=== PATIENT | male | born 1990 | race African-American/Black ===

== ENCOUNTER 2018-11-06 23:46 | Emergency (ER) | payer OTHER ==
[~2018-11-06] VITALS: Ht 182.9 cm; Wt 81.7 kg
[2018-11-07] MEDS ORDERED: XANAX1 MG PO ×2 (00:02→01:15)
[2018-11-07] MEDS ORDERED: [UNRECOGNIZED DRUG - REMARK] (00:03)
[2018-11-07 00:36] LABS: ABSOLUTE NEUTROPHILS 5.3 thou/uL (1.4-8.2); BASOPHILS 0.4 % (0.0-2.0); EOSINOPHILS 1.3 % (0.0-3.0); HEMATOCRIT 41.6 % (42.0-52.0); HEMOGLOBIN 14.1 gm/dL (14.0-18.0); LYMPHOCYTES 18.2 % (24.0-44.0); MCH 27.5 pg (26.0-34.0); MCHC 33.8 g/dL (28.0-37.0); MCV 81.5 fL (80.0-100.0); PLATELET COUNT 225 thou/uL (150-400); POLYS 75.1 % (36.0-66.0); RDW 12.5 % (10.5-14.5)
[2018-11-07 00:55] LABS: ANION GAP 12 mmol/L (7-16); BUN 10 mg/dL (7-18); CHLORIDE 93 mmol/L (98-107); CO2 26 mmol/L (21-32); CREATININE 1.1 mg/dL (0.7-1.3); GLUCOSE 99 mg/dL (74-106); POTASSIUM 3.3 mmol/L (3.5-5.1); SODIUM 131 mmol/L (136-145)
[2018-11-07 01:00] LABS: ALBUMIN 4.9 g/dL (3.4-5.0); MAGNESIUM 1.9 mg/dL (1.8-2.4); SALICYLATE < 2.8 mg/dL (2.8-20.0); SGOT 14 U/L (15-37); SGPT 20 U/L (30-65); TOTAL BILIRUBIN 0.4 mg/dL (<0.1-1.0); TOTAL PROTEIN 8.5 g/dL (6.4-8.2); TROPONIN-I <0.06 ng/mL (<0.06)
[2018-11-07] MEDS ORDERED: NAPROSYN500 MG PO (01:15)
[2018-11-07 03:30] VITALS: BP 119/104
--- NOTE | 2018-11-07 09:15 | EKG ---
[place] [address] [facility] [place] [address] ELECTROCARDIOGRAM REPORT Name: LATASHA CHRISTIANSONBRETPRIETO Room #: DEP Caty#: [id number] ������������������ Admission: 11/06/18 ������������������ Attend Phys: Discharge: 11/07/18 ������������������ Date of : 89 Report #: [id number] ����������������������������������������������������������������� [id number] THIS REPORT FOR: //name// [facility] ED Test Date: 2018-11-07 Test Time: 00:07:13 Pat Name: FUAD CHRISTIANSON Department: Room: Gender: Laundry Assistant: : 1990 Requested By: Allan Dominguez Order Number: [id number] MD: [place] Measurements Intervals [place] Rate: 80 P: 76 OK: 165 QRS: 73 QRSD: 95 T: 56 QT: 389 QTc: 449 Interpretive Statements Sinus rhythm ST elevation, consider early repolarization No previous ECG available for comparison Electronically Signed On 11-07-2018 9:15:21 CDT by [place] Park [email or web address] ��������������������������������������������� <ELECTRONICALLY SIGNED> ���������������������������������������� By: [place] MD, [facility] ��������������������������������������������� 11/07/18 0915 0007 Kalen Park MD, FACC /EPI
== END 2018-11-07 03:30 | disposition short-term general hospital (02) ==
LOC: ER 23:46
PROVIDERS: Emergency Medicine
DX: S12.400A Unspecified displaced fracture of fifth cervical vertebra, initial encounter for closed fracture (principal); S09.90XA Unspecified injury of head, initial encounter; R42 Dizziness and giddiness; R07.89 Other chest pain; F41.9 Anxiety disorder, unspecified; W18.2XXA Fall in (into) shower or empty bathtub, initial encounter; Y93.89 Activity, other specified; Y92.89 Other specified places as the place of occurrence of the external cause; Y99.8 Other external cause status